=== PATIENT | male | born 1995 | race Caucasian/White ===

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

== ENCOUNTER 2017-04-07 19:42 | Emergency (ER) | payer OTHER ==
[~2017-04-07] VITALS: Ht 172.7 cm; Wt 56.8 kg
[2017-04-07 20:09] VITALS: BP 107/45
== END 2017-04-07 20:51 | disposition home or self-care (01) ==
LOC: EMS 19:45
DX: L29.0 Pruritus ani (principal); F12.90 Cannabis use, unspecified, uncomplicated
CPT/HCPCS: 99281; 99283